=== PATIENT | male | born 1985 | race Asian ===

== ENCOUNTER 2020-09-03 17:13 | Emergency (ER) | payer OTHER ==
[~2020-09-03] VITALS: Ht 165.1 cm; Wt 68.2 kg
[2020-09-03 19:33] LABS: BASOPHILS % (AUTO) 0.1 % (0.0-2.0); EOSINOPHILS % (AUTO) 0.1 % (1.0-6.0); HEMATOCRIT 45.3 % (41-53); HEMOGLOBIN 15.2 g/dL (13.5-17.5); LYMPHOCYTES % (AUTO) 7.8 % (22.0-44.0); MEAN CORPUSCULAR HGB CONC 33.6 G/dL (31.0-37.0); MEAN CORPUSCULAR VOLUME 86 fL (80-100); MONOCYTES # (AUTO) 0.3 K/uL (0.1-1.0); MONOCYTES % (AUTO) 2.4 % (2.0-9.0); PLATELET COUNT (AUTO) 318 K/uL (150-450); RED BLOOD CELL COUNT(AUTO) 5.25 MIL/uL (4.50-5.90)
[2020-09-03 19:46] LABS: NEUTROPHILS % (AUTO) 89.6 % (40.0-70.0)
[2020-09-03 19:51] LABS: ANION GAP 8 mmol/L (8-16); CALCIUM, TOTAL 9.1 mg/dL (8.8-10.5); CARBON DIOXIDE 29 mmol/L (22-29); CHLORIDE 101 mmol/L (98-107); CREATININE 0.88 mg/dL (0.60-1.30); GLOMERULAR FILTR. RATE CALC > 60 mL/min (>60); GLUCOSE,RANDOM 137 mg/dL (70-110); POTASSIUM 3.8 mmol/L (3.5-5.1); SODIUM SERUM 138 mmol/L (136-145); UREA NITROGEN, BLOOD 11 mg/dL (7-18)
[2020-09-03 19:57] LABS: ALANINE AMINOTRANSFERASE 48 U/L (12-78); ALBUMIN 3.2 g/dL (3.4-5.0); ALKALINE PHOSPHATASE 104 U/L (46-116); ASPARTATE AMINOTRANSFERASE 27 U/L (15-37); BILIRUBIN,TOTAL 0.3 mg/dL (0.1-1.0); TOTAL PROTEIN, SERUM 8.3 g/dL (6.4-8.2)
[2020-09-03] MEDS ORDERED: SODIUM CHLORIDE 0.9% 1,000 ML IV ONE (23:00)
[2020-09-03] MEDS ORDERED: DiphenhydrAMINE HCL 50 MG/ML VIAL IVP ONE (23:30)
[2020-09-04 01:40] LABS: COVID AG,FIA SOURCE NASOPHARYNGEAL
[2020-09-04 02:25] LABS: INFLUENZA TYPE A NEGATIVE FOR TYPE A (NEGATIVE); INFLUENZA TYPE B NEGATIVE FOR TYPE B (NEGATIVE)
[2020-09-04 03:26] VITALS: BP 135/85
== END 2020-09-04 03:40 | disposition home or self-care (01) ==
LOC: EMS 17:13
DX: R51.9 Headache, unspecified (principal); R42 Dizziness and giddiness; R55 Syncope and collapse; Z20.828 Contact with and (suspected) exposure to other viral communicable diseases
CPT/HCPCS: 36415; 70450; 80053; 84484; 85025; 87426; 87804; 93005; 96360; 96361; 99285; J7030; U0003; J1200

== ENCOUNTER 2021-09-25 11:43 | Emergency (ER) | payer OTHER ==
[~2021-09-25] VITALS: Ht 165.1 cm; Wt 68.2 kg
[2021-09-25] MEDS ORDERED: SODIUM CHLORIDE 0.9% 1,000 ML IV ONE (12:30)
[2021-09-25] MEDS ORDERED: KETOROLAC TROMETHAMINE 30 MG/ML VIAL IVP ONE (12:30)
[2021-09-25 12:42] LABS: BASOPHILS % (AUTO) 0.3 % (0.0-2.0); EOSINOPHILS % (AUTO) 0.1 % (1.0-6.0); HEMATOCRIT 42.9 % (41-53); HEMOGLOBIN 14.8 g/dL (13.5-17.5); LYMPHOCYTES # (AUTO) 0.9 K/uL (1.0-4.8); MEAN CORPUSCULAR HEMOGLOBIN 29.5 pg (26.0-34.0); MEAN CORPUSCULAR HGB CONC 34.6 G/dL (31.0-37.0); MEAN CORPUSCULAR VOLUME 85 fL (80-100); MONOCYTES # (AUTO) 0.4 K/uL (0.1-1.0); MONOCYTES % (AUTO) 3.6 % (2.0-9.0); NEUTROPHILS # (AUTO) 10.2 K/uL (1.8-7.7); PLATELET COUNT (AUTO) 360 K/uL (150-450); RED BLOOD CELL COUNT(AUTO) 5.03 MIL/uL (4.50-5.90); RED CELL DISTRIBUTION WIDTH 12.8 % (11.5-14.5)
[2021-09-25 12:49] LABS: ANION GAP 6 mmol/L (8-16); CARBON DIOXIDE 29 mmol/L (22-29); CHLORIDE 102 mmol/L (98-107); CREATININE 1.17 mg/dL (0.60-1.30); GLOMERULAR FILTR. RATE CALC > 60 mL/min (>60); GLUCOSE,RANDOM 129 mg/dL (70-110); POTASSIUM 3.6 mmol/L (3.5-5.1); SODIUM SERUM 137 mmol/L (136-145); UREA NITROGEN, BLOOD 11 mg/dL (7-18)
[2021-09-25 12:56] LABS: ALANINE AMINOTRANSFERASE 92 U/L (12-78); ALBUMIN 3.3 g/dL (3.4-5.0); ALKALINE PHOSPHATASE 109 U/L (46-116); ASPARTATE AMINOTRANSFERASE 32 U/L (15-37); BILIRUBIN,TOTAL 0.7 mg/dL (0.1-1.0); LIPASE 76 U/L (73-393); TOTAL PROTEIN, SERUM 8.4 g/dL (6.4-8.2)
[2021-09-25 14:05] LABS: APPEARANCE,URINE TURBID (CLEAR); GLUCOSE, URINE (UA) NEGATIVE (NEGATIVE); KETONES,URINE 40 mg/dL (NEGATIVE); LEUKOCYTE ESTERASE ,URINE NEGATIVE (NEGATIVE); NITRATE,URINE NEGATIVE (NEGATIVE); PROTEIN,URINE POS 1+ (NEGATIVE)
[2021-09-25 14:19] LABS: AMORPHOUS SEDIMENT,UR Many /LPF (None Seen); BACTERIA,URINE None Seen /HPF (None Seen); BILIRUBIN,URINE PRELIM. POSITIVE (NEGATIVE); OCCULT BLOOD,URINE SMALL (NEGATIVE); WBC,URINE None Seen /HPF (0-5)
[2021-09-25] MEDS ORDERED: TAMSULOSIN HCL 0.4 MG CAPSULE PO ONE (14:45)
[2021-09-25 15:30] VITALS: BP 137/90
== END 2021-09-25 16:08 | disposition home or self-care (01) ==
LOC: EMS 11:47
DX: N20.1 Calculus of ureter (principal)
CPT/HCPCS: 36415; 74176; 80053; 81001; 83690; 85025; 96361; 96374; 99284; J1885; J7030

== ENCOUNTER 2022-03-07 12:17 | Emergency (ER) | payer OTHER ==
[~2022-03-07] VITALS: Ht 165.1 cm; Wt 77.3 kg
[2022-03-07] MEDS ORDERED: BENZOCAINE 20% 50 MCG/SPRAY 57 GM TP ONE (13:00)
[2022-03-07 13:18] VITALS: BP 138/89
== END 2022-03-07 13:25 | disposition home or self-care (01) ==
LOC: EMS 12:17
DX: T17.228A Food in pharynx causing other injury, initial encounter (principal); X58.XXXA Exposure to other specified factors, initial encounter; Y93.89 Activity, other specified; Y92.89 Other specified places as the place of occurrence of the external cause; Y99.8 Other external cause status
CPT/HCPCS: 99284; Z7502; Z7610